=== PATIENT | male | born 1965 ===

== ENCOUNTER 2018-05-02 09:52 | Emergency (ER) | payer OTHER ==
[2018-05-02 10:05] VITALS: RESP 18; TEMP 98.3
[2018-05-02] MEDS ORDERED: Albuterol-Ipratrop 3 mg / 0.5 (3 ml) UD IH STA (10:51)
[2018-05-02] MEDS ORDERED: methylPREDNISolone 125 MG in Sodium Chloride 0.9% 100 ML IVPB ONE (10:51)
[2018-05-02 11:44] LABS: PH,URINE 6.5 (4.7-8.0); URINE BILIRUBIN NEGATIVE (NEGATIVE); URINE BLOOD NEGATIVE (NEGATIVE); URINE GLUCOSE (UA) NEGATIVE (NEGATIVE); URINE LEUKOCYTE ESTERASE NEGATIVE Leu/uL (NEGATIVE); URINE PROTEIN NEGATIVE mg/dL (<30 mg/dL); URINE UROBILINOGEN 0.2 E.U./dL (<1 E.U./dL)
[2018-05-02 11:46] LABS: BASO # 0.09 K/mm3 (0.0-2.0); BASO % 1.3 % (0.0-3.0); EOS # 0.2 (0.0-0.7); EOS % 2.9 % (1.5-5.0); HEMOGLOBIN 13.1 g/dL (14.0-18.0); LYMPH # 3.6 (1.2-3.4); LYMPH % 53.1 % (22.0-35.0); MEAN CORPUSCULAR HEMOGLOBIN 29.9 pg (25.0-35.0); MEAN CORPUSCULAR HGB CONC 32.5 g/dl (31.0-37.0); MEAN PLATELET VOLUME 10.7 fl (7.0-11.0); MONO # 0.7 (0.1-0.6); MONO % 10.6 % (1.0-6.0); RBC 4.38 10^6/uL (3.5-6.1); RED CELL DISTRIBUTION WIDTH 13.4 % (11.5-14.5); WHITE BLOOD COUNT 6.8 10^3/uL (4.5-11.0)
[2018-05-02 11:47] LABS: URINE APPEARANCE CLEAR (CLEAR); URINE COLOR YELLOW (YELLOW)
[2018-05-02 12:07] LABS: ALB/GLOB RATIO 0.7 (1.1-1.8); ALBUMIN 3.6 g/dL (3.0-4.8); ALT/SGPT 27 U/L (7-56); AST/SGOT 40 U/L (17-59); BLOOD UREA NITROGEN 10 mg/dL (7-21); CALCIUM 9.1 mg/dL (8.4-10.5); GFR NON-AFRICAN AMERICAN > 60
[2018-05-02 12:10] LABS: INFLUENZA A B NEGATIVE FOR FLU A/B (NEGATIVE)
--- NOTE | 2018-05-02 12:58 | RAD ---
Date of service: 05/02/2018 HISTORY: cough COMPARISON: No prior. TECHNIQUE: Chest PA and lateral views FINDINGS: LUNGS: No active pulmonary disease. PLEURA: No significant pleural effusion identified. No pneumothorax apparent. CARDIOVASCULAR: No aortic atherosclerotic calcification present. Normal cardiac size. No pulmonary vascular congestion. OSSEOUS STRUCTURES: No significant abnormalities. VISUALIZED UPPER ABDOMEN: Normal. OTHER FINDINGS: None. IMPRESSION: No active disease.
[2018-05-02 13:36] VITALS: BP 123/78; PULSE 78; O2SAT 98
--- NOTE | 2018-05-02 23:57 | ED PDOC ---
Arrival/HPI - General Chief Complaint: Cough, Cold, Congestion Time Seen by Provider: 05/02/18 10:41 Historian: Patient - History of Present Illness Narrative History of Present Illness (Text): 52 y/o tobacco-smoking male with no significant PMH presents to the ED c/o cough, congestion, and subjective fever x 2 days. Associated rash x 1 month. Rash is pruritic, painful, and located to extremities and trunk. No rash on palm or soles. [place] from [place] in February. Denies abdominal pain, chest pain, palpitations, SOB, nausea, vomiting, testicular pain, joint pain or swelling, myalgias, back pain, neck pain, headache, dizziness, vision changes, or any other associated symptoms. Past Medical History - Provider Review Nursing Documentation Reviewed: Yes - Infectious Disease Hx of Infectious Diseases: None - Psychiatric Hx Substance Use: No - Anesthesia Hx Anesthesia: No Hx Anesthesia Reactions: No Hx Malignant Hyperthermia: No Family/Social History - Physician Review Nursing Documentation Reviewed: Yes Family/Social History: No Known Family HX Smoking Status: Current Some Days Smoker Hx Alcohol Use: Yes Frequency of alcohol use: Socially Hx Substance Use: No Allergies/Home Meds Allergies/Adverse Reactions: Allergies No Known Allergies Allergy (Verified 05/02/18 10:05) Review of Systems - Review of Systems Constitutional: Fevers Eyes: Normal. absent: Vision Changes, Photophobia ENT: Sore Throat, Sinus Congestion Respiratory: Cough. absent: SOB Cardiovascular: Normal. absent: Chest Pain, Palpitations, Syncope Gastrointestinal: Normal. absent: Abdominal Pain, Stool Changes, Nausea, Vomiting, Appetite Changes Genitourinary Male: Normal. absent: Dysuria, Frequency Musculoskeletal: Normal. absent: Back Pain, Neck Pain, Joint Swelling, Myalgias Skin: Rash Neurological: Normal. absent: Headache, Dizziness, Focal Weakness Endocrine: Normal Hemo/Lymphatic: Normal Psychiatric: Normal Physical Exam Vital Signs Temp Pulse Resp BP Pulse Ox 05/02/18 13:34 78 18 123/78 98 05/02/18 10:01 98.3 F 101 H 18 129/87 100 Medical Decision Making ED Course and Treatment: Initial Plan: * CBC, CMP * Coags * UA * CXR * Solumedrol * Duoneb x 3 * IVF Bloodwork reviewed, unremarkable CXR shows no active disease Case reviewed with ED attending Dr. Carrillo who agrees with plan of care and disposition. Lung exam significantly improved with medications, patient reports improvement of air exchange. Will continue steroid course at home, will give keflex for presumed staph infection. Advised PMD/clinic and dermatology followup. Diagnostic testing results and plan of care discussed with patient. Strict instructions given regarding prescription use, importance of followup, and signs/symptoms to return to ER including SOB, chest pain or any other new/worsening symptoms. Pt verbalized understanding of discussion. Patient is A&Ox3, ambulating with steady gait, with vital signs stable for discharge. - Lab Interpretations Lab Results: Total Bilirubin 0.2 mg/dL (0.2-1.3) 05/02/18 11:15 AST 40 U/L (17-59) 05/02/18 11:15 ALT 27 U/L (7-56) 05/02/18 11:15 Alkaline Phosphatase 64 U/L (38-126) 05/02/18 11:15 Total Protein 8.4 g/dL (5.8-8.3) H 05/02/18 11:15 Albumin 3.6 g/dL (3.0-4.8) 05/02/18 11:15 Globulin 4.8 gm/dL 05/02/18 11:15 Albumin/Globulin Ratio 0.7 (1.1-1.8) L 05/02/18 11:15 Urine Color Yellow (YELLOW) 05/02/18 11:15 Urine Appearance Clear (CLEAR) 05/02/18 11:15 Urine pH 6.5 (4.7-8.0) 05/02/18 11:15 Ur Specific Mascot 1.020 (1.005-1.035) 05/02/18 11:15 Urine Protein Negative mg/dL (<30 mg/dL) 05/02/18 11:15 Urine Glucose (UA) Negative mg/dL (NEGATIVE) 05/02/18 11:15 Urine Ketones Negative mg/dL (NEGATIVE) 05/02/18 11:15 Urine Blood Negative (NEGATIVE) 05/02/18 11:15 Urine Nitrate Negative (NEGATIVE) 05/02/18 11:15 Urine Bilirubin Negative (NEGATIVE) 05/02/18 11:15 Urine Urobilinogen 0.2 E.U./dL (<1 E.U./dL) 05/02/18 11:15 Ur Leukocyte Esterase Negative Trice/uL (NEGATIVE) 05/02/18 11:15 - RAD Interpretation Radiology Orders: 05/02/18 10:51 CXR (PA/LAT) [CHEST TWO VIEWS (PA/LAT)] [RAD] Stat - Medication Orders Current Medication Orders: Discontinued Medications Albuterol/Ipratropium (Duoneb 3 Mg/0.5 Mg (3 Ml) Ud) 3 ml IH STAT STA Stop: 05/02/18 10:52 Last Admin: 05/02/18 11:23 Dose: 3 ml Methylprednisolone (Solu-Medrol) 125 mg IVP ONCE ONE Stop: 05/02/18 11:01 Last Admin: 05/02/18 11:23 Dose: 125 mg IVP Administration Document 05/02/18 11:23 EQ (Rec: 05/02/18 11:23 EQ [facility] [email or web address] Charges for Administration # of IVP Administrations 1 Disposition/Present on Arrival - Present on Arrival History of DVT/PE: No History of Uncontrolled Diabetes: No Urinary Catheter: No History of Decub. Ulcer: No History Surgical Site Infection Following: None - Disposition Diagnosis: Asthma exacerbation Disposition: HOME/ ROUTINE Condition: IMPROVED Discharge Instructions (ExitCare): Asthma in Adults, Inhalers Print Language: SWEDISH Additional Instructions: Keflex cada 6 horas varsha 1 semana Prednisona 2 comprimidos al da varsha 4 eduardo. Inhalador Ventolin cada 6 horas segn sea necesario para la tos Seguimiento con dermatologa en 2 eduardo. Seguimiento con mdico primario en 2 eduardo. Regrese a la kailey de emergencias con cualquier sntoma nuevo o que empeore Prescriptions: Albuterol Sulfate [Ventolin Hfa] 2 puff IH Q6 #1 pump Cephalexin [Keflex] 500 mg PO QID 7 Days #28 capsule predniSONE [predniSONE Tab] 40 mg PO DAILY #8 tab Referrals: [facility] [place] - Follow up with primary Kortney Cali MD [Medical Doctor] - Follow up with primary Forms: [employer] (Spanish), WORK NOTE
== END 2018-05-02 13:35 | disposition home or self-care (01) ==
LOC: ED 09:52
DX: J45.901 Unspecified asthma with (acute) exacerbation (principal)
CPT/HCPCS: 71046; 80053; 81003; 85025; 87070; 87430; 87804; 96374; 99283; J2930